=== PATIENT | female | born 1990 | race Caucasian/White ===

== ENCOUNTER → 2017-01-04 | Outpatient (REF) | payer OTHER, MEDICAID ==
[~2017-01-04] MED LIST: AMBI10TA OR; EFFE75CA75 OR; PAXI40TA OR; TRAZ50TA OR
== END ==
LOC: M LAB REF 09:48
PROVIDERS: ATTEND Physician Assistant
DX: L03.90 Cellulitis, unspecified (principal)

== ENCOUNTER → 2017-04-03 | Outpatient (CLI) | payer OTHER ==
[2017-04-03 14:26] LABS: BASO # 0.1 K/mm3 (0.0-0.2); BASO % 0.7 % (0.0-1.0); EOS # 0.8 K/mm3 (0.0-0.50); EOS % 7.1 % (0.0-3.0); LARGE UNSTAINED CELL # 0.3 K/mm3 (0.0-0.4); LARGE UNSTAINED CELL % 2.4 % (0.0-4.0); LYMPH # 2.3 K/mm3 (1.5-6.5); LYMPH % 19.4 % (24.0-44.0); MEAN CORPUSCULAR HEMOGLOBIN 26.5 pg (27.0-33.0); MEAN CORPUSCULAR HGB CONC 32.6 g/dl (32.0-36.5); MEAN CORPUSCULAR VOLUME 81.2 fl (80.0-96.0); MONO # 0.6 K/mm3 (0.0-0.8); MONO % 5.4 % (0.0-5.0); NEUTROPHILS # 7.5 K/mm3 (1.8-7.7); PLATELET COUNT, AUTOMATED 314 k/mm3 (150-450); RED CELL DISTRIBUTION WIDTH 14.8 % (11.5-14.5); WHITE BLOOD COUNT 11.6 K/mm3 (4.0-10.0)
[2017-04-04 10:07] LABS: HBsAg Prenatal NEGATIVE (NEGATIVE)
== END ==
LOC: M SMT 09:58
PROVIDERS: ATTEND Obstetrics & Gynecology
DX: Z34.81 Encounter for supervision of other normal pregnancy, first trimester (principal)

== ENCOUNTER → 2017-04-16 | Outpatient (CLI) | payer OTHER ==
[2017-04-16 18:38] LABS: ALBUMIN 3.6 GM/DL (3.2-5.2); ALBUMIN/GLOBULIN RATIO 1.03 (1.00-1.93); ALKALINE PHOSPHATASE 70 U/L (45-117); ALT/SGPT 54 U/L (12-78); ANION GAP 5 MEQ/L (8-16); AST/SGOT 23 U/L (15-37); BILIRUBIN,TOTAL 0.3 MG/DL (0.2-1.0); BLOOD UREA NITROGEN 7 MG/DL (7-18); CALCIUM LEVEL 8.8 MG/DL (8.5-10.1); CARBON DIOXIDE LEVEL 27 MEQ/L (21-32); CHLORIDE LEVEL 102 MEQ/L (98-107); CREATININE FOR GFR 0.57 MG/DL (0.55-1.02); GLOMERULAR FILTRATION RATE > 60.0 (>60); GLUCOSE, FASTING 78 MG/DL (70-105); POTASSIUM SERUM 4.7 MEQ/L (3.5-5.1); SODIUM LEVEL 134 MEQ/L (136-145); TOTAL PROTEIN 7.1 GM/DL (6.4-8.2); URIC ACID 2.9 MG/DL (2.6-6.0)
== END ==
LOC: M LAB 17:12
PROVIDERS: ATTEND Obstetrics & Gynecology
DX: M32.9 Systemic lupus erythematosus, unspecified (principal)

== ENCOUNTER → 2017-04-29 | Outpatient (CLI) | payer OTHER | LOC: M SMT 09:39 | PROVIDERS: ATTEND Advanced Practice Midwife | DX: R53.83 Other fatigue (principal) ==

== ENCOUNTER 2017-06-20 16:37 | Emergency (ER) | payer OTHER ==
[~2017-06-20] VITALS: Ht 170.2 cm; Wt 82.2 kg
[2017-06-20] MEDS ORDERED: ZYRT10CA PO (16:49)
[2017-06-20] MEDS ORDERED: PROZ10CA7 PO (16:49)
[2017-06-20] MEDS ORDERED: OMEP20CA3 PO (16:49)
[2017-06-20] MEDS ORDERED: METOCLOPRAMIDE INJ 10MG/2ML VIAL (J2765) IV ONE (18:45)
[2017-06-20] MEDS ORDERED: NS 1,000 ML IV ONE (18:45)
[2017-06-20 20:07] VITALS: BP 142/80
== END 2017-06-20 20:22 | disposition home or self-care (01) ==
LOC: M ED 16:37
DX: O21.0 Mild hyperemesis gravidarum (principal); O26.892 Other specified pregnancy related conditions, second trimester; R51 Headache; O99.342 Other mental disorders complicating pregnancy, second trimester; F32.9 Major depressive disorder, single episode, unspecified; Z3A.17 17 weeks gestation of pregnancy; Z79.899 Other long term (current) drug therapy
CPT/HCPCS: 96374; 99283; J2765

== ENCOUNTER 2017-06-23 22:01 | Emergency (ER) | payer OTHER ==
[~2017-06-23] VITALS: Ht 170.2 cm; Wt 82.2 kg
[~2017-06-23 22:01] MED LIST changes: +OMEP20CA3 PO; +PROZ10CA7 PO; +ZYRT10CA PO
[2017-06-23 23:52] LABS: BASO # 0.1 K/mm3 (0.0-0.2); BASO % 0.5 % (0.0-1.0); EOS # 0.7 K/mm3 (0.0-0.50); EOS % 4.5 % (0.0-3.0); LARGE UNSTAINED CELL # 0.3 K/mm3 (0.0-0.4); LARGE UNSTAINED CELL % 1.6 % (0.0-4.0); LYMPH # 3.3 K/mm3 (1.5-6.5); LYMPH % 19.5 % (24.0-44.0); MEAN CORPUSCULAR HEMOGLOBIN 26.9 pg (27.0-33.0); MEAN CORPUSCULAR VOLUME 79.1 fl (80.0-96.0); MONO # 0.7 K/mm3 (0.0-0.8); MONO % 4.6 % (0.0-5.0); NEUTROPHILS % 69.2 % (36.0-66.0); PLATELET COUNT, AUTOMATED 253 k/mm3 (150-450); RED CELL DISTRIBUTION WIDTH 15.1 % (11.5-14.5); WHITE BLOOD COUNT 15.9 K/mm3 (4.0-10.0)
--- NOTE | 2017-06-24 01:30 | REPUSA ---
CLINICAL HISTORY: Pelvic pain. TECHNIQUE: Realtime sonographic images were obtained in multiple projections via TA approach. The exa mination was performed by the pharmacy intake technician and still images were submitted for interpretation. COMMENTS: Single, live intrauterine gestation. Breech presentation. motion was identified. heart rate 149 beats per minute. Anterior placenta. No evidence of placental abruption. Placenta changes grade 0. Unremarkable amniotic fluid. The cervix measures 4.3 cm in length. The lateral ventricle measures 7.8 mm. Unremarkable maternal adnexa. Estimated gestation age 18 weeks and 2 days. Estimated delivery date of 11/23/2017. Nuchal CORD was not seen. The visualized anatomy is unremarkable. IMPRESSION: Single, live intrauterine gestation. Thank you for your kind referral of this patient.
[2017-06-24 01:44] VITALS: BP 134/86
== END 2017-06-24 01:45 | disposition home or self-care (01) ==
LOC: M ED 22:01
DX: Z32.01 Encounter for pregnancy test, result positive (principal); Z3A.18 18 weeks gestation of pregnancy; Z79.899 Other long term (current) drug therapy

== ENCOUNTER → 2017-08-20 | Outpatient (CLI) | payer OTHER ==
[2017-08-20 19:58] LABS: MEAN CORPUSCULAR HEMOGLOBIN 25.8 pg (27.0-33.0); MEAN CORPUSCULAR VOLUME 80.6 fl (80.0-96.0); RED CELL DISTRIBUTION WIDTH 15.2 % (11.5-14.5); WHITE BLOOD COUNT 16.7 10^3/uL (4.0-10.0)
== END ==
LOC: M SMT 13:04
PROVIDERS: ATTEND Obstetrics & Gynecology
DX: Z34.82 Encounter for supervision of other normal pregnancy, second trimester (principal)

== ENCOUNTER → 2017-10-06 | Outpatient (CLI) | payer OTHER ==
--- NOTE | 2017-10-07 07:41 | REP ---
LIMITED OBSTETRICAL ULTRASOUND: CLINICAL: Growth evaluation. COMPARISON: 07/08/2017. Ultrasound examination demonstrates single live advanced gestation in cephalic presentation. motion was identified by technologist. Placenta is noted posteriorly and grade 1 without evidence for placenta previa. Amniotic fluid volume is within normal limits. No evidence for nuchal cord. Gestational age by LMP 32 weeks 4 days with estimated date of delivery 11/27/2017. Gestational age by current measurements 33 weeks 5 days with estimated date of delivery 11/21/2017. FHR 144 beats per minute. BPD 8.6 cm 34 weeks 6 days HC 30.4 cm 33 weeks 6 days AC 30.5 cm 34 weeks 3 days FL 6.4 cm 32 weeks 6 days HC/AC ratio 1.00. Estimated weight 2330 grams (73rd percentile) based on age by LMP. YONNY equals 14.4 cm (8.4 - 24.4). Umbilical cord S/d ratio equals 3.01 (2.20 - 3.20). IMPRESSION: Single live intrauterine in cephalic presentation demonstrating appropriate interval growth. No gross abnormalities are identified. Signed by Paul Roldan MD 10/10/2017 06:55 A
== END ==
LOC: M SMT 08:07
PROVIDERS: ATTEND Obstetrics & Gynecology
DX: O99.89 Other specified diseases and conditions complicating pregnancy, childbirth and the puerperium (principal); Z3A.32 32 weeks gestation of pregnancy

== ENCOUNTER → 2017-10-29 | Outpatient (CLI) | payer OTHER | LOC: M SMT 09:55 | DX: O99.89 Other specified diseases and conditions complicating pregnancy, childbirth and the puerperium (principal); Z3A.35 35 weeks gestation of pregnancy | CPT/HCPCS: 76816 ==

== ENCOUNTER → 2017-10-30 | Outpatient (REF) | payer OTHER | LOC: M LAB REF 11:15 | DX: Z36.85 Encounter for antenatal screening for Streptococcus B (principal); Z3A.00 Weeks of gestation of pregnancy not specified | CPT/HCPCS: 87081 ==

== ENCOUNTER → 2017-11-04 | Outpatient (CLI) | payer OTHER ==
[2017-11-04 18:14] LABS: HEMATOCRIT 35.1 % (36.0-47.0); HEMOGLOBIN 10.9 g/dl (12.0-16.0); MEAN CORPUSCULAR HGB CONC 31.1 g/dl (32.0-36.5); MEAN CORPUSCULAR VOLUME 77.1 fl (80.0-96.0); PLATELET COUNT, AUTOMATED 251 10^3/uL (150-450); RED BLOOD COUNT 4.55 10^6/uL (4.00-5.40); WHITE BLOOD COUNT 17.3 10^3/uL (4.0-10.0)
[2017-11-04 18:27] LABS: ALT/SGPT 17 U/L (12-78); AST/SGOT 18 U/L (7-37); BILIRUBIN,TOTAL 0.3 MG/DL (0.2-1.0); CREATININE FOR GFR 0.51 MG/DL (0.55-1.02); GLOMERULAR FILTRATION RATE > 60.0 (>60); LDH LACTATE DEHYDROGENASE 168 U/L (84-246); URIC ACID 3.6 MG/DL (2.6-6.0)
[2017-11-04 18:29] LABS: TOTAL PROTEIN,RANDOM URINE 35.7 MG/DL (0.0-12.0)
== END ==
LOC: M SMT 13:04
DX: O16.3 Unspecified maternal hypertension, third trimester (principal)
CPT/HCPCS: 84460

== ENCOUNTER 2018-01-05 22:07 | Observation (INO) | payer OTHER ==
[2018-01-05] MEDS: KETOROLAC 30 MG/ML VIAL (J1885) IV (22:58)
[2018-01-05] MEDS: ONDANSETRON 4MG/2ML VIAL (J2405) IV (22:58)
[2018-01-05] MEDS: NS 1,000 ML IV (22:58)
[2018-01-05 23:04] LABS: BASO # 0.2 10^3/uL (0.0-0.2); BASO % 0.7 % (0.0-1.0); EOS # 1.2 10^3/uL (0.0-0.50); EOS % 5.2 % (0.0-3.0); HEMATOCRIT 49.1 % (36.0-47.0); HEMOGLOBIN 15.4 g/dl (12.0-16.0); IMMATURE GRANULOCYTE % 0.5 % (0-3.0); LYMPH # 3.8 10^3/uL (1.5-6.5); MEAN CORPUSCULAR HEMOGLOBIN 24.5 pg (27.0-33.0); MEAN CORPUSCULAR HGB CONC 31.4 g/dl (32.0-36.5); MEAN CORPUSCULAR VOLUME 78.1 fl (80.0-96.0); MONO # 1.4 10^3/uL (0.0-0.8); NEUTROPHILS # 16.8 10^3/uL (1.8-7.7); NEUTROPHILS % 71.6 % (36.0-66.0); PLATELET COUNT, AUTOMATED 386 10^3/uL (150-450); RED BLOOD COUNT 6.29 10^6/uL (4.00-5.40); RED CELL DISTRIBUTION WIDTH 16.8 % (11.5-14.5); WHITE BLOOD COUNT 23.5 10^3/uL (4.0-10.0)
[2018-01-05 23:26] LABS: CONTROL LINE HCG INT CTR LINE PRESENT; HCG, SERUM QUALITATIVE NEGATIVE (NEGATIVE)
[2018-01-05 23:32] LABS: ALBUMIN 3.7 GM/DL (3.2-5.2); ALBUMIN/GLOBULIN RATIO 0.97 (1.00-1.93); ALKALINE PHOSPHATASE 189 U/L (45-117); ALT/SGPT 115 U/L (12-78); AMYLASE 1234 U/L (25-115); ANION GAP 7 MEQ/L (8-16); AST/SGOT 78 U/L (7-37); BILIRUBIN,DIRECT < 0.1 MG/DL (0.0-0.2); BILIRUBIN,TOTAL 0.2 MG/DL (0.2-1.0); BLOOD UREA NITROGEN 14 MG/DL (7-18); CALCIUM LEVEL 8.8 MG/DL (8.5-10.1); CARBON DIOXIDE LEVEL 28 MEQ/L (21-32); CHLORIDE LEVEL 105 MEQ/L (98-107); CREATININE FOR GFR 0.85 MG/DL (0.55-1.30); GLOMERULAR FILTRATION RATE > 60.0 (>60); GLUCOSE, FASTING 99 MG/DL (70-100); LIPASE 24537 U/L (73-393); POTASSIUM SERUM 4.1 MEQ/L (3.5-5.1); SODIUM LEVEL 140 MEQ/L (136-145); TOTAL PROTEIN 7.5 GM/DL (6.4-8.2)
[2018-01-05] MEDS ORDERED: ISOVUE-370 76% 100ML VIAL (Q9967) As Ordered (23:52)
[2018-01-06 00:05] LABS: CHOLESTEROL LEVEL 217 MG/DL (<200); CHOLESTEROL RISK RATIO 3.616 (<5); HDL CHOLESTEROL 60 MG/DL (>40); LDL CHOLESTEROL 141.2 MG/DL (<100); NON-HDL-C 157 MG/DL; TRIGLYCERIDES LEVEL 79 MG/DL (<150)
[2018-01-06] MEDS ORDERED: ONDANSETRON 4MG/2ML VIAL (J2405) IV (01:30)
[2018-01-06] MEDS ORDERED: ACETAMINOPHEN TAB 650MG DOSE (2X325MG) PO (01:45)
[2018-01-06] MEDS ORDERED: MORPHINE 4 MG/ML 1ML VIAL (J2270) IV (01:45)
[2018-01-06] MEDS: NS 1,000 ML IV ×4 (03:01→23:18)
[2018-01-06] MEDS: FLUoxetine 20 MG CAP PO ×2 (04:18→21:21)
[2018-01-06 05:54] LABS: ANION GAP 5 MEQ/L (8-16); BLOOD UREA NITROGEN 13 MG/DL (7-18); CALCIUM LEVEL 7.9 MG/DL (8.5-10.1); CARBON DIOXIDE LEVEL 28 MEQ/L (21-32); CHLORIDE LEVEL 107 MEQ/L (98-107); GLOMERULAR FILTRATION RATE > 60.0 (>60); GLUCOSE, FASTING 97 MG/DL (70-100); POTASSIUM SERUM 4.1 MEQ/L (3.5-5.1); SODIUM LEVEL 140 MEQ/L (136-145)
[2018-01-06 05:55] LABS: ERYTHROCYTE SEDIMENTATION RATE 12 mm/hr (0-20)
[2018-01-06 05:56] LABS: ANION GAP 6 MEQ/L (8-16); BLOOD UREA NITROGEN 13 MG/DL (7-18); C REACTIVE PROTEIN QUANTITATIV 0.62 MG/DL (0.00-0.30); CALCIUM LEVEL 8.2 MG/DL (8.5-10.1); CARBON DIOXIDE LEVEL 28 MEQ/L (21-32); CHLORIDE LEVEL 107 MEQ/L (98-107); CREATININE FOR GFR 0.76 MG/DL (0.55-1.30); GLOMERULAR FILTRATION RATE > 60.0 (>60); GLUCOSE, FASTING 97 MG/DL (70-100); POTASSIUM SERUM 4.1 MEQ/L (3.5-5.1); SODIUM LEVEL 141 MEQ/L (136-145)
[2018-01-06 05:57] LABS: ETHYL ALCOHOL (ETHANOL) < 0.003 % (0.000-0.010)
[2018-01-06 06:57] LABS: BASO # 0.1 10^3/uL (0.0-0.2); BASO % 0.5 % (0.0-1.0); EOS # 0.8 10^3/uL (0.0-0.50); EOS % 4.4 % (0.0-3.0); HEMATOCRIT 39.5 % (36.0-47.0); IMMATURE GRANULOCYTE % 0.8 % (0-3.0); LYMPH # 2.9 10^3/uL (1.5-6.5); LYMPH % 15.5 % (24.0-44.0); MEAN CORPUSCULAR HEMOGLOBIN 25.1 pg (27.0-33.0); MEAN CORPUSCULAR HGB CONC 32.2 g/dl (32.0-36.5); MEAN CORPUSCULAR VOLUME 78.1 fl (80.0-96.0); MONO # 0.8 10^3/uL (0.0-0.8); MONO % 4.4 % (0.0-5.0); NEUTROPHILS % 74.4 % (36.0-66.0); PLATELET COUNT, AUTOMATED 317 10^3/uL (150-450); RED BLOOD COUNT 5.06 10^6/uL (4.00-5.40); RED CELL DISTRIBUTION WIDTH 16.1 % (11.5-14.5); WHITE BLOOD COUNT 18.8 10^3/uL (4.0-10.0)
[2018-01-06 07:02] LABS: AMYLASE 691 U/L (25-115); LIPASE 6521 U/L (73-393)
[2018-01-06 07:04] LABS: HEMOGLOBIN 12.7 g/dl (12.0-16.0)
[2018-01-06] MEDS: PANTOPRAZOLE 40MG INJ (PROTONIX) (C9113) IV (09:13)
[2018-01-06 11:23] LABS: KETONE, URINE AUTO RFX NEGATIVE (NEGATIVE); LEUKOCYTE ESTERASE UR AUTO RFX NEGATIVE (NEGATIVE); MUCUS, URINE RFX SMALL (NEGATIVE); NITRITE, URINE AUTO RFX NEGATIVE (NEGATIVE); RBC, URINE AUTO RFX 2 /HPF (0-3); SQUAM EPITHELIAL CELL UR AURFX 12 /HPF (0-6); WBC, URINE AUTO RFX 2 /HPF (0-3)
[2018-01-06 12:02] LABS: SPECIFIC GRAVITY UR AUTO RFX >1.060 (1.002-1.035)
[2018-01-06 14:24] LABS: ANION GAP 8 MEQ/L (8-16); BLOOD UREA NITROGEN 14 MG/DL (7-18); CALCIUM LEVEL 7.9 MG/DL (8.5-10.1); CARBON DIOXIDE LEVEL 24 MEQ/L (21-32); CHLORIDE LEVEL 111 MEQ/L (98-107); CREATININE FOR GFR 0.68 MG/DL (0.55-1.30); GLOMERULAR FILTRATION RATE > 60.0 (>60); GLUCOSE, FASTING 80 MG/DL (70-100); POTASSIUM SERUM 3.9 MEQ/L (3.5-5.1); SODIUM LEVEL 143 MEQ/L (136-145)
[2018-01-06] MEDS: ENOXAPARIN 40 MG/0.4 ML SYRINGE (J1650) SC (17:26)
[2018-01-06 19:54] LABS: ANION GAP 6 MEQ/L (8-16); BLOOD UREA NITROGEN 12 MG/DL (7-18); CALCIUM LEVEL 7.8 MG/DL (8.5-10.1); CARBON DIOXIDE LEVEL 25 MEQ/L (21-32); CHLORIDE LEVEL 112 MEQ/L (98-107); CREATININE FOR GFR 0.71 MG/DL (0.55-1.30); GLOMERULAR FILTRATION RATE > 60.0 (>60); GLUCOSE, FASTING 101 MG/DL (70-100); POTASSIUM SERUM 3.6 MEQ/L (3.5-5.1); SODIUM LEVEL 143 MEQ/L (136-145)
[2018-01-07 02:25] LABS: ANION GAP 5 MEQ/L (8-16); BLOOD UREA NITROGEN 8 MG/DL (7-18); CALCIUM LEVEL 7.9 MG/DL (8.5-10.1); CARBON DIOXIDE LEVEL 27 MEQ/L (21-32); CHLORIDE LEVEL 111 MEQ/L (98-107); CREATININE FOR GFR 0.58 MG/DL (0.55-1.30); GLOMERULAR FILTRATION RATE > 60.0 (>60); GLUCOSE, FASTING 78 MG/DL (70-100); POTASSIUM SERUM 3.9 MEQ/L (3.5-5.1); SODIUM LEVEL 143 MEQ/L (136-145)
[2018-01-07 05:31] LABS: HEMATOCRIT 34.9 % (36.0-47.0); HEMOGLOBIN 10.8 g/dl (12.0-16.0); MEAN CORPUSCULAR HEMOGLOBIN 24.5 pg (27.0-33.0); MEAN CORPUSCULAR HGB CONC 30.9 g/dl (32.0-36.5); MEAN CORPUSCULAR VOLUME 79.3 fl (80.0-96.0); PLATELET COUNT, AUTOMATED 255 10^3/uL (150-450); RED CELL DISTRIBUTION WIDTH 15.9 % (11.5-14.5); WHITE BLOOD COUNT 11.7 10^3/uL (4.0-10.0)
[2018-01-07] MEDS: NS 1,000 ML IV ×2 (05:46→11:56)
[2018-01-07 05:54] LABS: LIPASE 145 U/L (73-393)
[2018-01-07 05:55] LABS: ANION GAP 5 MEQ/L (8-16); BLOOD UREA NITROGEN 8 MG/DL (7-18); CARBON DIOXIDE LEVEL 28 MEQ/L (21-32); CHLORIDE LEVEL 110 MEQ/L (98-107); GLOMERULAR FILTRATION RATE > 60.0 (>60); GLUCOSE, FASTING 75 MG/DL (70-100); POTASSIUM SERUM 4.2 MEQ/L (3.5-5.1); SODIUM LEVEL 143 MEQ/L (136-145)
[2018-01-07] MEDS: FERROUS SULFATE 325MG TAB PO ×3 (09:30→20:07)
[2018-01-07] MEDS: PANTOPRAZOLE 40MG INJ (PROTONIX) (C9113) IV (09:30)
[2018-01-07] MEDS: ENOXAPARIN 40 MG/0.4 ML SYRINGE (J1650) SC (09:31)
[2018-01-07 09:41] LABS: FERRITIN 21 NG/ML (8-252); IRON (FE) 78 UG/DL (50-170); PERCENT SATURATION 26.7 % (13.2-45.0); TOTAL IRON BINDING CAPACITY 292 UG/DL (250-450)
[2018-01-07 12:35] LABS: VITAMIN B12 LEVEL 902 PG/ML (247-911)
[2018-01-07 14:40] LABS: ANION GAP 7 MEQ/L (8-16); BLOOD UREA NITROGEN 5 MG/DL (7-18); CALCIUM LEVEL 7.9 MG/DL (8.5-10.1); CARBON DIOXIDE LEVEL 24 MEQ/L (21-32); CHLORIDE LEVEL 112 MEQ/L (98-107); CREATININE FOR GFR 0.56 MG/DL (0.55-1.30); GLOMERULAR FILTRATION RATE > 60.0 (>60); GLUCOSE, FASTING 98 MG/DL (70-100); POTASSIUM SERUM 3.7 MEQ/L (3.5-5.1); SODIUM LEVEL 143 MEQ/L (136-145)
[2018-01-07] MEDS ORDERED: SLF 3 ML SYR IV (15:45)
[2018-01-07 19:54] LABS: ANION GAP 6 MEQ/L (8-16); BLOOD UREA NITROGEN 4 MG/DL (7-18); CALCIUM LEVEL 8.1 MG/DL (8.5-10.1); CARBON DIOXIDE LEVEL 26 MEQ/L (21-32); CHLORIDE LEVEL 111 MEQ/L (98-107); CREATININE FOR GFR 0.62 MG/DL (0.55-1.30); GLOMERULAR FILTRATION RATE > 60.0 (>60); GLUCOSE, FASTING 100 MG/DL (70-100); POTASSIUM SERUM 3.6 MEQ/L (3.5-5.1); SODIUM LEVEL 143 MEQ/L (136-145)
[2018-01-07] MEDS: FLUoxetine 20 MG CAP PO (20:07)
[2018-01-07] MEDS: SLF 3 ML SYR IV (20:07)
[2018-01-08 05:03] LABS: HEMATOCRIT 38.3 % (36.0-47.0); MEAN CORPUSCULAR HEMOGLOBIN 24.7 pg (27.0-33.0); MEAN CORPUSCULAR HGB CONC 31.3 g/dl (32.0-36.5); PLATELET COUNT, AUTOMATED 310 10^3/uL (150-450); RED BLOOD COUNT 4.85 10^6/uL (4.00-5.40); RED CELL DISTRIBUTION WIDTH 15.8 % (11.5-14.5); WHITE BLOOD COUNT 13.6 10^3/uL (4.0-10.0)
[2018-01-08] MEDS: SLF 3 ML SYR IV (06:00)
[2018-01-08] MEDS: FERROUS SULFATE 325MG TAB PO (08:46)
[2018-01-08] MEDS: PANTOPRAZOLE 40MG INJ (PROTONIX) (C9113) IV (08:46)
[2018-01-08 10:13] LABS: ALBUMIN 3.3 GM/DL (3.2-5.2); ALBUMIN/GLOBULIN RATIO 0.97 (1.00-1.93); ALKALINE PHOSPHATASE 163 U/L (45-117); ALT/SGPT 84 U/L (12-78); ANION GAP 7 MEQ/L (8-16); AST/SGOT 55 U/L (7-37); BILIRUBIN,TOTAL 0.2 MG/DL (0.2-1.0); BLOOD UREA NITROGEN 6 MG/DL (7-18); CALCIUM LEVEL 8.2 MG/DL (8.5-10.1); CARBON DIOXIDE LEVEL 26 MEQ/L (21-32); CHLORIDE LEVEL 109 MEQ/L (98-107); CREATININE FOR GFR 0.62 MG/DL (0.55-1.30); GLOMERULAR FILTRATION RATE > 60.0 (>60); GLUCOSE, FASTING 84 MG/DL (70-100); POTASSIUM SERUM 3.8 MEQ/L (3.5-5.1); SODIUM LEVEL 142 MEQ/L (136-145); TOTAL PROTEIN 6.7 GM/DL (6.4-8.2)
[2018-01-09 11:27] LABS: HEPATITIS B SURFACE ANTIGEN NEGATIVE (NEGATIVE)
[2018-01-09 11:53] LABS: HEPATITIS B CORE ANTIBODY IGM NEGATIVE (NEGATIVE); HEPATITIS C VIRUS ABY INDEX 0.1 INDEX (<0.8)
[2018-01-09 11:55] LABS: HEPATITIS A ANTIBODY IGM NEGATIVE (NEGATIVE)
[2018-01-10 00:07] LABS: IgG SUBCLASS 4(ONLY) 38 mg/dL (2-96)
== END 2018-01-08 12:13 | disposition home or self-care (01) ==
LOC: M ED INP 22:08 → M PCU 01-06 11:12 → M ED 22:07
DX: K85.90 Acute pancreatitis without necrosis or infection, unspecified (principal); D72.829 Elevated white blood cell count, unspecified; R74.0 Nonspecific elevation of levels of transaminase and lactic acid dehydrogenase [LDH]; F41.9 Anxiety disorder, unspecified; F32.9 Major depressive disorder, single episode, unspecified; N83.201 Unspecified ovarian cyst, right side; K21.9 Gastro-esophageal reflux disease without esophagitis; D50.9 Iron deficiency anemia, unspecified; E78.5 Hyperlipidemia, unspecified; R11.2 Nausea with vomiting, unspecified; I10 Essential (primary) hypertension; G43.909 Migraine, unspecified, not intractable, without status migrainosus; Z79.899 Other long term (current) drug therapy
CPT/HCPCS: C9113

== ENCOUNTER → 2018-04-06 | Outpatient (REF) | payer OTHER | LOC: M LAB REF 04-07 09:27 | DX: Z12.4 Encounter for screening for malignant neoplasm of cervix (principal) ==

== ENCOUNTER → 2019-05-27 | Outpatient (CLI) | payer OTHER ==
[~2019-05-27] MED LIST changes: +FERR1TAB8 PO; +FERR324T2 PO; +FLUO40CA PO; +IBUPOTC PO; +MAPA500T2 PO; +MOME50SP2; +MOTR200T44 PO; -OMEP20CA3 PO; +OMEP20CA4 PO; +OMEP40CA2 PO; +PRENTAB9 PO
[2019-05-28 10:09] LABS: BASO # 0.1 10^3/uL (0.0-0.2); EOS # 1.1 10^3/uL (0.0-0.50); EOS % 8.4 % (0.0-3.0); HEMATOCRIT 47.7 % (36.0-47.0); HEMOGLOBIN 14.2 g/dl (12.0-15.5); LYMPH # 3.2 10^3/uL (1.5-6.5); LYMPH % 23.9 % (24.0-44.0); MEAN CORPUSCULAR HEMOGLOBIN 25.5 pg (27.0-33.0); MEAN CORPUSCULAR HGB CONC 29.8 g/dl (32.0-36.5); MEAN CORPUSCULAR VOLUME 85.6 fl (80.0-96.0); MONO % 7.5 % (0.0-5.0); NEUTROPHILS % 58.8 % (36.0-66.0); PLATELET COUNT, AUTOMATED 369 10^3/uL (150-450); RED BLOOD COUNT 5.57 10^6/uL (4.00-5.40); WHITE BLOOD COUNT 13.5 10^3/uL (4.0-10.0)
[2019-05-28 10:17] LABS: PERCENT SATURATION 20.9 % (13.2-45.0)
[2019-05-28 10:39] LABS: FOLATE 7.1 NG/ML
== END ==
LOC: M SMT 14:07
PROVIDERS: ATTEND Physician Assistant
DX: D64.9 Anemia, unspecified (principal)

== ENCOUNTER → 2019-06-03 | Outpatient (REF) | payer OTHER ==
[2019-06-03 12:28] LABS: BASO # 0.1 10^3/uL (0.0-0.2); BASO % 0.8 % (0.0-1.0); EOS # 0.8 10^3/uL (0.0-0.50); EOS % 6.4 % (0.0-3.0); HEMATOCRIT 41.8 % (36.0-47.0); HEMOGLOBIN 13.3 g/dl (12.0-15.5); LYMPH # 2.9 10^3/uL (1.5-6.5); LYMPH % 22.7 % (24.0-44.0); MEAN CORPUSCULAR HEMOGLOBIN 25.9 pg (27.0-33.0); MEAN CORPUSCULAR HGB CONC 31.8 g/dl (32.0-36.5); MEAN CORPUSCULAR VOLUME 81.5 fl (80.0-96.0); MONO # 0.9 10^3/uL (0.0-0.8); MONO % 7.3 % (0.0-5.0); NEUTROPHILS # 7.8 10^3/uL (1.8-7.7); NEUTROPHILS % 62.2 % (36.0-66.0); PLATELET COUNT, AUTOMATED 306 10^3/uL (150-450); RED BLOOD COUNT 5.13 10^6/uL (4.00-5.40); WHITE BLOOD COUNT 12.5 10^3/uL (4.0-10.0)
== END ==
LOC: M LABDRAW1 10:14
PROVIDERS: ATTEND Physician Assistant
DX: D64.9 Anemia, unspecified (principal)

== ENCOUNTER → 2019-07-27 | Outpatient (REF) | payer OTHER ==
[2019-07-29 14:11] LABS: HPV HYBRID CAPTURE II Negative (Negative)
== END ==
LOC: M LAB REF 20:40
PROVIDERS: ATTEND Obstetrics & Gynecology
DX: Z12.4 Encounter for screening for malignant neoplasm of cervix (principal)

== ENCOUNTER → 2019-11-15 | Outpatient (CLI) | payer OTHER ==
[~2019-11-15] MED LIST changes: +OMEP1CAP73 PO; -OMEP20CA4 PO; -OMEP40CA2 PO; +OMEP40CA97 PO
[2019-11-15 13:16] LABS: BASO # 0.1 10^3/uL (0.0-0.2); BASO % 0.5 % (0.0-1.0); EOS # 0.5 10^3/uL (0.0-0.5); EOS % 3.6 % (0.0-3.0); HEMATOCRIT 41.1 % (36.0-47.0); HEMOGLOBIN 12.7 g/dl (12.0-15.5); LYMPH # 2.1 10^3/uL (1.5-5.0); LYMPH % 16.4 % (24.0-44.0); MEAN CORPUSCULAR HEMOGLOBIN 25.9 pg (27.0-33.0); MEAN CORPUSCULAR HGB CONC 30.9 g/dl (32.0-36.5); MEAN CORPUSCULAR VOLUME 83.9 fl (80.0-96.0); MONO # 0.8 10^3/uL (0.0-0.8); MONO % 6.3 % (0.0-5.0); NEUTROPHILS # 9.2 10^3/uL (1.5-8.5); NEUTROPHILS % 72.7 % (36.0-66.0); PLATELET COUNT, AUTOMATED 262 10^3/uL (150-450); WHITE BLOOD COUNT 12.6 10^3/uL (4.0-10.0)
[2019-11-15 13:33] LABS: TOTAL PROTEIN,RANDOM URINE 27.9 MG/DL (0.0-12.0)
[2019-11-15 13:38] LABS: ALT/SGPT 17 U/L (12-78); BILIRUBIN,TOTAL 0.3 MG/DL (0.2-1.0); CREATININE FOR GFR 0.56 MG/DL (0.55-1.30); GLOMERULAR FILTRATION RATE > 60.0 (>60); LDH LACTATE DEHYDROGENASE 139 U/L (84-246); URIC ACID 3.1 MG/DL (2.6-6.0)
[2019-11-15 13:53] LABS: RUBELLA IgG QUALITATIVE IMMUNE (IMMUNE)
[2019-11-15 13:54] LABS: HEPATITIS B SURFACE ANTIGEN NEGATIVE (NEGATIVE)
[2019-11-15 14:22] LABS: HEPATITIS C VIRUS ABY INDEX 0.1 INDEX (<0.8)
[2019-11-15 14:29] LABS: HIV 1&2 SCREEN CENTAUR NEGATIVE (NEGATIVE)
[2019-11-15 15:13] LABS: CHLAMYDIA DNA AMPLIFICATION NEGATIVE (NEGATIVE); GC DNA AMPLIFICATION NEGATIVE (NEGATIVE)
== END ==
LOC: M WUC 09:56
PROVIDERS: ATTEND Obstetrics & Gynecology
DX: O09.291 Supervision of pregnancy with other poor reproductive or obstetric history, first trimester (principal); Z3A.00 Weeks of gestation of pregnancy not specified

== ENCOUNTER → 2020-01-11 | Outpatient (CLI) | payer OTHER ==
--- NOTE | 2020-01-12 06:48 | REP ---
Clinical: Anatomical evaluation. Comparison: None . Findings: Examination demonstrates a single live intrauterine in variable presentation. motion is identified by technologist. Placenta is noted anterior/left lateral and grade zero with evidence for complete previa. Amniotic fluid volume is normal. Cervix measures 3.9 cm in length and appears closed. No evidence for nuchal cord. Gestational age by current measurements 19 weeks 3 days with LUCIA 06/03/2020 . FHR equals 153 beats per minute. BPD 4.7 cm 20 weeks 0 days HC 16.6 cm 19 weeks 2 days AC 14.9 cm 20 weeks 1 day FL 3.0 cm 19 weeks 2 days HL 3.0 cm 19 weeks 6 days HC/AC ratio 1.11 Estimated weight 311 grams ( 57 percentile). Anatomical assessment demonstrates normal structures including cranium, choroid plexus, cavum, cerebellum/posterior fossa, lungs, four-chamber heart/ventricular outflow tracts, diaphragm, stomach, cord insertion/three-vessel cord, kidneys/bladder, and extremities. Impression: 1. Single live intrauterine in variable presentation. 2. Complete placenta previa noted. 3. Limited evaluation of the facial features and spine.
== END ==
LOC: M WHC 10:14
PROVIDERS: ATTEND Obstetrics & Gynecology
DX: O09.299 Supervision of pregnancy with other poor reproductive or obstetric history, unspecified trimester (principal)

== ENCOUNTER → 2020-02-02 | Outpatient (CLI) | payer OTHER ==
--- NOTE | 2020-02-02 10:35 | REP ---
OB ULTRASOUND: Real-time sonographic evaluation of the gravid uterus is performed utilizing transabdominal and endovaginal technique. There is a single living intrauterine gestation. Estimated gestational age is 22 weeks 4 days, EDC 06/03/2020. Today's measurements indicate appropriate growth. BPD 57 mm = 23 weeks 3 days, 71st percentile HC 211 mm = 23 weeks 1 day, 67th percentile AC 173 mm = 22 weeks 2 days, 42nd percentile Femur length 40 mm = 22 weeks 5 days, 54th percentile HC/AC ratio 1.22 within normal range of 1.04-1.23. Estimated weight 516 grams, 44th percentile. Cervix is closed measuring 4.4 cm in length. heart rate 165 beats per minute. Visualized anatomy today includes the spine, kidneys, and upper lip which are grossly unremarkable. position is breech. Placenta is anterior. The placenta is grade 1 with no abruption. On transvaginal imaging the placenta is low lying and the tip is 5 mm from the internal cervical os. Amniotic fluid within normal limits.
== END ==
LOC: M WHC 08:46
PROVIDERS: ATTEND Obstetrics & Gynecology
DX: Z34.82 Encounter for supervision of other normal pregnancy, second trimester (principal)

== ENCOUNTER → 2020-02-07 | Outpatient (REF) | payer OTHER | LOC: M PLALAB 14:17 | PROVIDERS: ATTEND Obstetrics & Gynecology | DX: O44.02 Complete placenta previa NOS or without hemorrhage, second trimester (principal) ==

== ENCOUNTER → 2020-03-15 | Outpatient (REF) | payer OTHER ==
[2020-03-15 10:15] LABS: HEMATOCRIT 38.3 % (36.0-47.0); HEMOGLOBIN 12.3 g/dl (12.0-15.5); MEAN CORPUSCULAR HEMOGLOBIN 26.5 pg (27.0-33.0); MEAN CORPUSCULAR HGB CONC 32.1 g/dl (32.0-36.5); MEAN CORPUSCULAR VOLUME 82.4 fl (80.0-96.0); PLATELET COUNT, AUTOMATED 231 10^3/uL (150-450); RED BLOOD COUNT 4.65 10^6/uL (4.00-5.40); WHITE BLOOD COUNT 17.5 10^3/uL (4.0-10.0)
== END ==
LOC: M PLALAB 08:06
PROVIDERS: ATTEND Obstetrics & Gynecology
DX: O44.02 Complete placenta previa NOS or without hemorrhage, second trimester (principal)

== ENCOUNTER → 2020-04-04 | Outpatient (CLI) | payer OTHER ==
--- NOTE | 2020-04-04 18:41 | REP ---
Clinical: History of placenta previa Comparison: 02/02/2020 . Findings: Examination demonstrates a single live intrauterine in cephalic presentation. motion is identified by technologist. Placenta is noted anterior and grade I without evidence for placenta previa or abruption. Amniotic fluid volume is normal. Cervix measures 4.0 cm in length and appears closed. No evidence for nuchal cord. Gestational age by LMP 31 weeks 3 days with LUCIA 06/03/2020 . Gestational age by current measurements 31 weeks 3 days with LUCIA 06/03/2020 . FHR equals 139 beats per minute. Estimated weight 1820 grams ( 47 percentile). Amniotic fluid index: 13.7 cm Impression: 1. Single live intrauterine in cephalic presentation demonstrating appropriate interval growth. 2. Normal anterior grade 1 placenta without evidence for placenta previa.
== END ==
LOC: M WHC 07:23
PROVIDERS: ATTEND Nurse Practitioner Women's Health
DX: Z36.2 Encounter for other antenatal screening follow-up (principal); Z3A.31 31 weeks gestation of pregnancy

== ENCOUNTER → 2020-05-11 | Outpatient (REF) | payer OTHER ==
[~2020-05-11] MED LIST changes: +ACET-683 PO; +HYDR-3363 PO; +IBUP80TA PO; +LABE20TAB PO; +LEVOTAB10 PO; +MOME50SP; +OMEP10CASR PO; +ZOLO100T PO
== END ==
LOC: M PLALAB 15:09
PROVIDERS: ATTEND Advanced Practice Midwife
DX: Z34.83 Encounter for supervision of other normal pregnancy, third trimester (principal)

== ENCOUNTER 2020-05-14 10:34 | Outpatient (CLI) | payer OTHER ==
[~2020-05-14] VITALS: Ht 170.2 cm; Wt 95.0 kg
[~2020-05-14 10:34] MED LIST changes: -ACET-683 PO; -HYDR-3363 PO; -IBUP80TA PO; -LABE20TAB PO; -LEVOTAB10 PO; -MOME50SP; -OMEP10CASR PO; -ZOLO100T PO
[2020-05-14] MEDS ORDERED: PRENTAB9 PO (11:02)
[2020-07-21] MEDS ORDERED: MOME50SP (07:53)
[2020-07-21] MEDS ORDERED: HYDR-3363 PO (07:53)
[2020-07-21] MEDS ORDERED: LEVOTAB10 PO (07:53)
== END 2020-05-14 12:01 | disposition home or self-care (01) ==
LOC: M LDO 10:34
PROVIDERS: ATTEND Obstetrics & Gynecology
DX: O44.03 Complete placenta previa NOS or without hemorrhage, third trimester (principal); Z3A.33 33 weeks gestation of pregnancy

== ENCOUNTER 2020-05-20 07:51 | Inpatient (IN) | payer OTHER ==
[2020-05-20] VITALS (42 sets, daily range): BP systolic 117–155; BP diastolic 57–108
[~2020-05-20] VITALS: Ht 170.2 cm; Wt 95.9 kg
[2020-05-20] MEDS ORDERED: ZOLO100T PO (08:09)
[2020-05-20] MEDS ORDERED: LACTATED RINGER'S 1000 ML IV STA (09:08)
[2020-05-20] MEDS ORDERED: OXYTOCIN DRIP 30 UNITS in IV 1 EA IV SCH ×2 (09:30→19:32)
[2020-05-20 09:38] LABS: HEMATOCRIT 36.8 % (36.0-47.0); MEAN CORPUSCULAR HEMOGLOBIN 26.5 pg (27.0-33.0); MEAN CORPUSCULAR HGB CONC 32.6 g/dl (32.0-36.5); MEAN CORPUSCULAR VOLUME 81.4 fl (80.0-96.0); PLATELET COUNT, AUTOMATED 229 10^3/uL (150-450); RED BLOOD COUNT 4.52 10^6/uL (4.00-5.40)
[2020-05-20] MEDS: LR 1,000 ML IV SCH ×2 (09:42→12:52)
[2020-05-20] MEDS ORDERED: FENTANYL 2MCG/ML ROPIVACAINE 0.2% IN 0.9% NACL 100ML IVBAG As Ordered ONE (14:02)
[2020-05-20] MEDS ORDERED: REFRIGERATOR IV KEYS XX PRN (16:00)
[2020-05-20] MEDS ORDERED: ePHEDrine SULFATE 25 MG/5 ML(5MG/ML) SYRINGE IV PRN (16:00)
[2020-05-20] MEDS ORDERED: diphenhydrAMINE 50MG/ML VIAL (J1200) IV PRN (16:00)
[2020-05-20] MEDS ORDERED: EPIDURAL/PCA KEYS XX PRN (16:00)
[2020-05-20] MEDS ORDERED: LACTATED RINGER'S 1000 ML IV PRN (16:00)
[2020-05-20] MEDS ORDERED: NALOXONE INJ 0.4MG/1ML VIAL (J2310 PER 1MG) IV PRN (16:00)
[2020-05-20] MEDS ORDERED: EPIDURAL COMMENT XX SCH (16:00)
[2020-05-20] MEDS ORDERED: FENTANYL/ROPIVACAINE/NACL BAG 100 ML EPIDURAL SCH (16:00)
[2020-05-20] MEDS ORDERED: ONDANSETRON 4MG/2ML VIAL IV PRN ×2 (16:00→19:45)
[2020-05-20] MEDS ORDERED: LR 1,000 ML IV SCH (19:32)
[2020-05-20] MEDS ORDERED: OXYTOCIN 30 UNITS IN 0.9% NaCl 500ML IV BAG (J2590) As Ordered ONE (19:37)
[2020-05-20] MEDS ORDERED: ACETAMINOPHEN TAB 650MG DOSE (2X325MG) PO PRN (19:45)
[2020-05-20] MEDS ORDERED: DIBUCAINE 1% OINTMENT 30GM TOP PRN (19:45)
[2020-05-20] MEDS ORDERED: DOCUSATE SODIUM 100 MG CAP PO PRN (19:45)
[2020-05-20] MEDS ORDERED: PROMETHAZINE 25 MG TAB PO PRN (19:45)
[2020-05-20] MEDS ORDERED: ACETAMINOPHEN 500 MG TAB PO PRN (19:45)
[2020-05-20] MEDS ORDERED: IBUPROFEN 600MG TAB PO PRN (19:45)
[2020-05-20] MEDS ORDERED: RHOGAM 300 MCG (1500 IU) INJ (J2790) IM SCH (19:45)
[2020-05-20] MEDS ORDERED: MEASLES,MUMPS,RUBELLA VACCINE INJ (MMR-II) (90707) SC SCH (19:45)
[2020-05-20] MEDS: ceFAZolin SOD 2 GM in IV 1 EA IV SCH (19:50)
[2020-05-21] MEDS: IBUPROFEN 800 MG TAB PO PRN ×2 (00:17→20:43)
[2020-05-21] MEDS: SERTRALINE 100 MG TAB PO SCH ×2 (00:17→20:44)
[2020-05-21] MEDS: ceFAZolin SOD 2 GM in IV 1 EA IV SCH ×3 (04:20→20:44)
[2020-05-21 05:38] VITALS: BP 122/72
[2020-05-21] MEDS: OMEPRAZOLE 20 MG CAP PO SCH (09:00)
[2020-05-21] MEDS: PRENATAL VITAMINS CHEWABLE TABLET PO SCH (09:00)
[2020-05-21 11:34] LABS: HEMOGLOBIN 12.1 g/dl (12.0-15.5); MEAN CORPUSCULAR HEMOGLOBIN 26.9 pg (27.0-33.0); MEAN CORPUSCULAR HGB CONC 31.8 g/dl (32.0-36.5); MEAN CORPUSCULAR VOLUME 84.6 fl (80.0-96.0); PLATELET COUNT, AUTOMATED 212 10^3/uL (150-450); RED BLOOD COUNT 4.49 10^6/uL (4.00-5.40); WHITE BLOOD COUNT 16.9 10^3/uL (4.0-10.0)
[2020-05-21 12:03] LABS: ALBUMIN 2.2 GM/DL (3.2-5.2); ALT/SGPT 14 U/L (12-78); BILIRUBIN,TOTAL 0.2 MG/DL (0.2-1.0); BLOOD UREA NITROGEN 6 MG/DL (7-18); CALCIUM LEVEL 8.7 MG/DL (8.5-10.1); CARBON DIOXIDE LEVEL 28 MEQ/L (21-32); CHLORIDE LEVEL 107 MEQ/L (98-107); CREATININE FOR GFR 0.73 MG/DL (0.55-1.30); GLOMERULAR FILTRATION RATE > 60.0 (>60); GLUCOSE, FASTING 67 MG/DL (70-100); LDH LACTATE DEHYDROGENASE 223 U/L (84-246); POTASSIUM SERUM 4.2 MEQ/L (3.5-5.1); SODIUM LEVEL 140 MEQ/L (136-145); URIC ACID 4.2 MG/DL (2.6-6.0)
[2020-05-21 15:39] LABS: CREATININE,RANDOM URINE 78.1 MG/DL; TOTAL PROTEIN,RANDOM URINE 179.6 MG/DL (0.0-12.0)
[2020-05-21 17:00] VITALS: BP 145/79
[2020-05-21 18:00] VITALS: BP 144/90
[2020-05-22 06:00] VITALS: BP 123/79
[2020-05-22] MEDS ORDERED: medroxyPROGESTERone ACET IM SUSP 150 MG/ML VIAL (J1050) IM ONE (06:00)
[2020-05-22 08:40] VITALS: BP 140/93
[2020-05-22] MEDS: PRENATAL VITAMINS CHEWABLE TABLET PO SCH (08:40)
[2020-05-22] MEDS: OMEPRAZOLE 20 MG CAP PO SCH (08:40)
[2020-05-22] MEDS: LABETALOL 200 MG TAB PO SCH ×2 (08:44→21:08)
[2020-05-22 10:15] VITALS: BP 129/73
[2020-05-22 14:00] VITALS: BP 133/78
[2020-05-22 17:37] VITALS: BP 134/88
[2020-05-22] MEDS: SERTRALINE 100 MG TAB PO SCH (21:07)
[2020-05-22 22:01] VITALS: BP 118/60
[2020-05-23 02:00] VITALS: BP 121/62
[2020-05-23 06:00] VITALS: BP 125/72
[2020-05-23] MEDS: PRENATAL VITAMINS CHEWABLE TABLET PO SCH (08:25)
[2020-05-23] MEDS: OMEPRAZOLE 20 MG CAP PO SCH (08:25)
[2020-05-23 08:26] VITALS: BP 139/90
[2020-05-23] MEDS: LABETALOL 200 MG TAB PO SCH (08:26)
[2020-05-23] MEDS ORDERED: LABE20TAB PO (08:54)
[2020-05-23] MEDS ORDERED: ACET-683 PO (08:54)
[2020-05-23] MEDS ORDERED: IBUP80TA PO (08:54)
--- NOTE | 2020-05-23 09:03 | DS.PDOC ---
Discharge Summary General Date of Admission May 20, 2020 at 08:44 Date of Discharge 05/23/20 Attending Physician: DIDI CISNEROS DO Discharge Summary PROCEDURES PERFORMED DURING STAY: None. ADMITTING DIAGNOSES: 1. IUP at 37.5 weeks gestation with SROM. DISCHARGE DIAGNOSES: 1. vaginal delivery 2. preeclampsia COMPLICATIONS/CHIEF COMPLAINT: LABOR. HISTORY OF PRESENT ILLNESS: Patient is a 29-year-old female who presented to L&D with SROM at 37.5 weeks gestation. She received an epidural for pain management and her labor was augmented with IV Pitocin. She had a of a living female that weighed 6 lbs 6 oz. She continued to have elevated BPs and was started on PO Labetalol 200 mg BID due to her blood pressures and her history of preeclampsia with readmission after delivery with her last . Her blood pressures have been stable on this dosage of antihypertensive. HOSPITAL COURSE: complicated by preeclampsia. DISCHARGE MEDICATIONS: Please see below. ALLERGIES: Please see below. PHYSICAL EXAMINATION ON DISCHARGE: VITAL SIGNS: Please see below. GENERAL: A+Ox3 CARDIOVASCULAR EXAMINATION: RRR. NO murmur, rubs or gallops. RESPIRATORY EXAMINATION: Regular rate with no use of accessory muscles. Clear by auscultation bilaterally. ABDOMINAL EXAMINATION: Fundus firm. EXTREMITIES: generalized edema Perineum: scant lochia. LABORATORY DATA: Please see below. ACTIVITY: As tolerated. DIET: regular DISCHARGE INSTRUCTIONS: 1. Patient to be discharged to home. 2. Follow-up in the office in 2 weeks for BP check and 6 weeks for visit. 3. Reviewed signs of mastitis, endometritis, hemorrhage, preeclampsia, postpar herbert depression, and reviewed pain management options. 4. continue with PO Labetalol. DISCHARGE CONDITION: Stable. TIME SPENT ON DISCHARGE: Greater than minutes. Vital Signs/I&Os Vital Signs Date Time Temp Pulse Resp B/P (MAP) Pulse Ox O2 Delivery O2 Flow Rate FiO2 05/23/20 08:26 100 139/90 05/23/20 06:00 98.5 16 05/22/20 17:37 97 Room Air I&O- Last 24 Hours up to 6 AM 05/23/20 06:00 Intake Total 300 ml Balance 300 ml Discharge Medications Scheduled Omeprazole (Omeprazole) 40 Mg Cap, 40 MG PO QHS, (Reported) No.137/Iron/Folic Acd ( Vitamin Tablet) 1 Each Tablet, 1 TAB PO DAILY, (Reported) Sertraline Hcl (Zoloft) 100 Mg Tablet, 1 TAB PO DAILY, (Reported) Allergies Coded Allergies: No Known Allergies (Verified , 05/14/20) MARGRET ROSS CNM May 23, 2020 09:03
== END 2020-05-23 10:20 | disposition home or self-care (01) | DRG 560 ==
LOC: M LDO 07:51 → M LDI 08:44 → M OBS 21:50
PROVIDERS: ADMIT Obstetrics & Gynecology; ATTEND Obstetrics & Gynecology
PROC: 10E0XZZ Delivery of Products of Conception, External Approach (ICD-10-PCS; principal; 2020-05-20)
DX: O69.1XX0 Labor and delivery complicated by cord around neck, with compression, not applicable or unspecified (principal); Z37.0 Single live birth; Z3A.37 37 weeks gestation of pregnancy; O14.95 Unspecified pre-eclampsia, complicating the puerperium

== ENCOUNTER → 2020-06-29 | Outpatient (REF) | payer OTHER ==
[~2020-06-29] MED LIST changes: +ACET-683 PO; +HYDR-3363 PO; +IBUP80TA PO; +LABE20TAB PO; +LEVOTAB10 PO; +MOME50SP; +OMEP10CASR PO; +ZOLO100T PO
== END ==
LOC: M LAB REF 20:40
PROVIDERS: ATTEND Physician Assistant Medical
DX: R19.7 Diarrhea, unspecified (principal)

== ENCOUNTER 2020-07-01 11:15 | Emergency (ER) | payer OTHER ==
[~2020-07-01] VITALS: Ht 170.2 cm; Wt 90.9 kg
[~2020-07-01 11:15] MED LIST changes: -HYDR-3363 PO; -LEVOTAB10 PO; -MOME50SP; -OMEP10CASR PO
[2020-07-01] MEDS ORDERED: OMEP10CASR PO (11:28)
[2020-07-01] MEDS ORDERED: NS 1,000 ML IV ONE (11:45)
[2020-07-01] MEDS ORDERED: KETOROLAC 30 MG/ML 1ML VIAL IV ONE (12:15)
[2020-07-01] MEDS ORDERED: PROMETHAZINE INJ 25 MG/ML VIAL (J2550) IV ONE (12:15)
[2020-07-01 12:28] LABS: BASO # 0.1 10^3/uL (0.0-0.2); BASO % 0.4 % (0.0-1.0); EOS # 0.8 10^3/uL (0.0-0.5); EOS % 2.9 % (0.0-3.0); HEMATOCRIT 48.3 % (36.0-47.0); HEMOGLOBIN 15.4 g/dl (12.0-15.5); LYMPH # 1.9 10^3/uL (1.5-5.0); MEAN CORPUSCULAR HEMOGLOBIN 25.8 pg (27.0-33.0); MEAN CORPUSCULAR HGB CONC 31.9 g/dl (32.0-36.5); MEAN CORPUSCULAR VOLUME 80.8 fl (80.0-96.0); MONO # 1.5 10^3/uL (0.0-0.8); MONO % 5.4 % (0.0-5.0); NEUTROPHILS # 23.3 10^3/uL (1.5-8.5); NEUTROPHILS % 83.5 % (36.0-66.0); PLATELET COUNT, AUTOMATED 261 10^3/uL (150-450); RED BLOOD COUNT 5.98 10^6/uL (4.00-5.40); WHITE BLOOD COUNT 27.9 10^3/uL (4.0-10.0)
[2020-07-01 12:49] LABS: HCG, SERUM QUALITATIVE NEGATIVE (NEGATIVE)
[2020-07-01 13:03] LABS: ALBUMIN 3.4 GM/DL (3.2-5.2); ALT/SGPT 30 U/L (12-78); BILIRUBIN,DIRECT 0.1 MG/DL (0.0-0.2); BILIRUBIN,TOTAL 0.7 MG/DL (0.2-1.0); BLOOD UREA NITROGEN 14 MG/DL (7-18); CARBON DIOXIDE LEVEL 19 MEQ/L (21-32); CHLORIDE LEVEL 112 MEQ/L (98-107); CREATININE FOR GFR 0.75 MG/DL (0.55-1.30); GLOMERULAR FILTRATION RATE > 60.0 (>60); GLUCOSE, FASTING 77 MG/DL (70-100); LIPASE 8809 U/L (73-393); POTASSIUM SERUM 3.9 MEQ/L (3.5-5.1); SODIUM LEVEL 142 MEQ/L (136-145); TOTAL PROTEIN 7.1 GM/DL (6.4-8.2)
[2020-07-01] MEDS ORDERED: ISOVUE-370 76% 100ML VIAL As Ordered ONE (13:22)
[2020-07-01 17:05] VITALS: BP 117/69
[2020-07-21] MEDS ORDERED: MOME50SP (07:53)
[2020-07-21] MEDS ORDERED: LEVOTAB10 PO (07:53)
[2020-07-21] MEDS ORDERED: HYDR-3363 PO (07:53)
--- NOTE | 2020-07-31 16:11 | REP ---
CT OF THE ABDOMEN AND PELVIS WITH IV CONTRAST: HISTORY: Abdominal pain and leukocytosis. TECHNIQUE: Axial contrast-enhanced images from the lung bases to the pubic symphysis with coronal and sagittal reformations using 100 cc Isovue 370 intravenous contrast material. COMPARISON: 01/05/18 FINDINGS: Mucosal thickening to the small bowel with mild enhancement as well as small to moderate amount of free fluid is most consistent with an acute infectious/inflammatory enteritis. Differential diagnosis includes inflammatory bowel disease. The colon appears relatively normal. No free air to suggest perforation. The liver, spleen, pancreas, distended gallbladder, bilateral adrenal glands and kidneys are relatively normal. The pelvis demonstrates normal bladder and age appropriate uterus/adnexa. Scattered mesenteric lymph nodes are also noted and consistent with the above suggestions of acute infectious/inflammatory enteritis. Abdominal aorta and vasculature normal. Musculoskeletal structures are intact and without acute osseous abnormality. Lung bases are clear. IMPRESSION: Findings most compatible with infectious/inflammatory enteritis. Differential diagnosis includes inflammatory bowel disease. Correlation is recommended. MTDD
== END 2020-07-01 17:18 | disposition home or self-care (01) ==
LOC: EDBD 11:15 → M ED 11:15
DX: K85.90 Acute pancreatitis without necrosis or infection, unspecified (principal); A04.0 Enteropathogenic Escherichia coli infection; Z79.899 Other long term (current) drug therapy
CPT/HCPCS: 36415; 74177; 80048; 80076; 83690; 84703; 85025; 96361; 96374; 96375; 99284; J1885; Q9967

== ENCOUNTER → 2020-07-26 | Outpatient (CLI) | payer OTHER ==
[~2020-07-26] MED LIST changes: +HYDR-3363 PO; +LEVOTAB10 PO; +MOME50SP; +OMEP10CASR PO
== END ==
LOC: M LABSMTC 11:26
PROVIDERS: ATTEND Anesthesiology
DX: Z01.812 Encounter for preprocedural laboratory examination (principal); Z20.828 Contact with and (suspected) exposure to other viral communicable diseases
CPT/HCPCS: C9803; U0003

== ENCOUNTER 2020-07-31 10:37 | Day surgery (SDC) | payer OTHER ==
[~2020-07-31] VITALS: Ht 170.2 cm; Wt 93.0 kg
[~2020-07-31 10:37] MED LIST changes: +LR 1,000 ML IV ONE
[2020-07-31 11:19] LABS: HEMATOCRIT 43.5 % (36.0-47.0); HEMOGLOBIN 13.6 g/dl (12.0-15.5); MEAN CORPUSCULAR HEMOGLOBIN 25.4 pg (27.0-33.0); MEAN CORPUSCULAR HGB CONC 31.3 g/dl (32.0-36.5); MEAN CORPUSCULAR VOLUME 81.2 fl (80.0-96.0); PLATELET COUNT, AUTOMATED 286 10^3/uL (150-450); RED BLOOD COUNT 5.36 10^6/uL (4.00-5.40)
[2020-07-31] MEDS ORDERED: KETOROLAC 60MG 2ML VIAL As Ordered ONE (12:05)
[2020-07-31] MEDS ORDERED: ONDANSETRON 4MG/2ML VIAL As Ordered ONE (12:05)
[2020-07-31] MEDS ORDERED: dexameTHASONE 4 MG/ML 1ML VIAL (J1100 PER 1MG) As Ordered ONE (12:05)
[2020-07-31] MEDS ORDERED: METOCLOPRAMIDE INJ 10MG/2ML VIAL (J2765 PER 1) As Ordered ONE (12:05)
[2020-07-31] MEDS ORDERED: LIDOCAINE 2% 100MG/5ML SDV (FOR ANES.) As Ordered ONE (12:05)
[2020-07-31] MEDS ORDERED: ROCURONIUM BROMIDE 50 MG/5 ML VIAL As Ordered ONE (12:05)
[2020-07-31] MEDS ORDERED: propofoL 200 MG/20 ML VIAL As Ordered ONE (12:05)
[2020-07-31] MEDS ORDERED: MIDAZOLAM INJ 2MG/2ML VIAL (J2250 PER 1MG) As Ordered ONE (12:05)
[2020-07-31] MEDS ORDERED: fentaNYL 100 MCG/2 ML INJECTION (J3010) As Ordered ONE ×2 (12:05→13:20)
[2020-07-31] MEDS ORDERED: BUPIVACAINE HCL 0.25% 30ML VIAL As Ordered ONE (12:06)
[2020-07-31] MEDS ORDERED: SILVER NITRATE APPLICATOR As Ordered ONE (12:06)
[2020-07-31] MEDS ORDERED: PERCOCET 5MG/325MG TAB As Ordered ONE (13:20)
[2020-07-31] MEDS: fentaNYL 100 MCG/2 ML INJECTION (J3010) IV PRN ×2 (13:25→13:35)
[2020-07-31] MEDS ORDERED: METOCLOPRAMIDE INJ 10MG/2ML VIAL (J2765 PER 1) IV PRN (13:30)
[2020-07-31] MEDS ORDERED: LR 1,000 ML IV SCH ×2 (13:30)
[2020-07-31] MEDS ORDERED: PERCOCET 5MG/325MG TAB PO PRN (13:30)
[2020-07-31] MEDS ORDERED: ONDANSETRON 4MG/2ML VIAL IV PRN (13:30)
--- NOTE | 2020-07-31 13:41 | TRANSCARE ---
Transition of Care: Transition of Care Date of procedure: 07/31/2020 Preoperative diagnosis: Satisfied parity. Postoperative diagnosis: Same Procedure: Laparoscopic bilateral salpingectomy Anesthesia: Gen. endotracheal Estimated blood loss 5 mL IV fluids replaced 800 mL lactated Ringer's Drains: In and out catheter 50 mL of urine Complications: None Preoperative antibiotics: None indicated Specimens: Bilateral fallopian tubes Intraoperative findings: Normal size, shape, contour of the uterus. Normal adnexa/ovaries bilaterally. Minimal pelvic adhesions Procedure: The patient was counseled and consented on the risks, benefits, indications, and alternatives of the procedure. Informed consent was obtained. She was taken to the operating room with an IV running. She was placed on the operating table in the dorsal supine position. Gen. anesthesia was administered and the airway was secured without any difficulty. A time out was performed per protocol. She was prepared and draped in the normal sterile fashion. Attention was turned to the pelvis. The bladder was drained with an in and out sterile catheter. A speculum was placed into the vagina with good visualization of the cervix. A single-tooth tenaculum was placed on the anterior lip of the cervix and downward traction was applied. The cervix was sequentially dilated with Jass dilators up to a #16. A ZUMI uterine manipulator was placed without any difficulty. The single-tooth tenaculum was removed. The tenaculum sites were noted to be hemostatic. A sterile glove switch was performed. Attention was turned to the abdomen. A 5mm umbilical incision was made with the 11 blade. Through this incision, a Veress needle was placed into the intraperitoneal cavity. Intraperitoneal placement was confirmed with ease of flow of normal saline, a positive drop test and no return on aspiration. The opening pressure was 2 mmHg. The abdomen was insufflated with 2 L of CO2. The Veress needle was removed. A 5 mm laparoscopic trocar was placed under direct visualization without any difficulty, and intraperitoneal placement was confirmed. No incidental bleeding or injury was evident. The patient was placed in steep Trendelenburg. 2 additional laparoscopic port sites were placed through 5 mm incisions in the lower left quadrant. Each trocar/cannula was placed under direct visualization without any difficulty, incidental bleeding or injury. A ttention was turned to the right fallopian tube. The right fallopian tube was followed out to the fimbriated end, grasped and elevated. The underlying mesosalpinx was sequentially clamped, coagulated and transected, until the level of the cornu was reached. At this level, the fallopian tube was clamped, coagulated and transected, thus amputating the fallopian tube. The fallopian tube was brought through the cannula without any difficulty and sent to pathology for permanent section. Attention was turned to the left fallopian tube. The left fallopian tube was followed out to the fimbriated end, grasped and elevated. The underlying mesosalpinx was sequentially clamped, coagulated and transected, until the level of the cornu was reached. At this level the left fallopian tube was followed out to the fimbriated end, grasped and elevated. The underlying mesosalpinx was sequentially clamped, coagulated and transected, until the level of the cornu was reached. At this level the fallopian tube was clamped, coagulated and transected, thus amputating the fallopian tube. The fallopian tube was brought to the cannula without any difficulty and sent to pathology for permanent section. Both right and left surgical sites were noted to be completely hemostatic. The gas was released from the abdomen. The patient was taken out of Trendelenburg position. The cannulas were removed. The skin incisions were closed with 4-0 Monocryl in subcuticular fashion and reinforced with Dermabond. The uterine manipulator was removed, the vagina was noted to be clear of any sponge or instrument. Sponge, needle and instrument counts were correct per protocol. The patient tolerated the entire procedure very well. She was transferred to the PACU in good and stable condition. DO SG Le JONATHAN R. DO Jul 31, 2020 13:41
[2020-07-31] MEDS ORDERED: SUGAMMADEX SODIUM 500 MG/5 ML VIAL (BRIDION) As Ordered ONE (14:52)
[2020-07-31 15:00] VITALS: BP 120/75
== END 2020-07-31 15:00 | disposition home or self-care (01) ==
LOC: M SDC 10:37
PROVIDERS: ATTEND Obstetrics & Gynecology
DX: Z30.2 Encounter for sterilization (principal); F41.9 Anxiety disorder, unspecified; F32.9 Major depressive disorder, single episode, unspecified; G43.909 Migraine, unspecified, not intractable, without status migrainosus; Z79.899 Other long term (current) drug therapy
CPT/HCPCS: 36415; 58661; 81025; 85027; 86850; 86900; 86901; 88302; J1100; J1885; J2250; J2405; J2765; J3010

== ENCOUNTER → 2020-08-03 | Outpatient (REF) | payer OTHER ==
[~2020-08-03] MED LIST changes: -LR 1,000 ML IV ONE
== END ==
LOC: M LAB REF 17:07
PROVIDERS: ATTEND Physician Assistant
DX: D48.5 Neoplasm of uncertain behavior of skin (principal)

== ENCOUNTER → 2020-09-01 | Outpatient (CLI) | payer OTHER ==
[2020-09-01 13:06] LABS: BASO # 0.1 10^3/uL (0.0-0.2); BASO % 0.8 % (0.0-1.0); EOS # 1.1 10^3/uL (0.0-0.5); EOS % 7.4 % (0.0-3.0); HEMATOCRIT 44.3 % (36.0-47.0); HEMOGLOBIN 13.7 g/dl (12.0-15.5); LYMPH # 2.7 10^3/uL (1.5-5.0); MEAN CORPUSCULAR HEMOGLOBIN 24.7 pg (27.0-33.0); MEAN CORPUSCULAR HGB CONC 30.9 g/dl (32.0-36.5); MEAN CORPUSCULAR VOLUME 79.8 fl (80.0-96.0); MONO # 1.1 10^3/uL (0.0-0.8); MONO % 7.1 % (0.0-5.0); NEUTROPHILS # 9.8 10^3/uL (1.5-8.5); NEUTROPHILS % 66.2 % (36.0-66.0); PLATELET COUNT, AUTOMATED 336 10^3/uL (150-450); RED BLOOD COUNT 5.55 10^6/uL (4.00-5.40); WHITE BLOOD COUNT 14.8 10^3/uL (4.0-10.0)
[2020-09-01 13:29] LABS: ERYTHROCYTE SEDIMENTATION RATE 30 mm/hr (0-20)
[2020-09-01 13:35] LABS: ALBUMIN 3.4 GM/DL (3.2-5.2); ALT/SGPT 28 U/L (12-78); BILIRUBIN,TOTAL 0.2 MG/DL (0.2-1.0); BLOOD UREA NITROGEN 8 MG/DL (7-18); C REACTIVE PROTEIN QUANTITATIV 2.09 MG/DL (0.00-0.30); CALCIUM LEVEL 8.8 MG/DL (8.5-10.1); CARBON DIOXIDE LEVEL 26 MEQ/L (21-32); CHLORIDE LEVEL 110 MEQ/L (98-107); FERRITIN 38 NG/ML (8-252); FREE T4 1.23 NG/DL (0.76-1.46); GLOMERULAR FILTRATION RATE > 60.0 (>60); GLUCOSE, FASTING 82 MG/DL (70-100); IRON (FE) 25 UG/DL (50-170); PERCENT SATURATION 8.3 % (13.2-45.0); POTASSIUM SERUM 3.7 MEQ/L (3.5-5.1); SODIUM LEVEL 141 MEQ/L (136-145); TOTAL 25(OH) VITAMIN D 23.8 NG/ML (30.0-100.0); TOTAL IRON BINDING CAPACITY 302 UG/DL (250-450); TOTAL PROTEIN 7.2 GM/DL (6.4-8.2); VITAMIN B12 LEVEL 718 PG/ML (247-911)
[2020-09-01 13:37] LABS: FOLATE 10.7 NG/ML (>5.4)
[2020-09-10 16:14] LABS: ANTINUCLEAR ANTIBODIES DIRECT Negative (Negative); Lyme Disease IgG/IgM Antibodie <0.91 ISR (0.00-0.90); Lyme Disease IgM Ab Quantitati <0.80 index (0.00-0.79); VITAMIN B1 LEVEL WHOLE BLOOD 159.7 nmol/L (66.5-200.0); VITAMIN B6,PYRIDOXAL PHOSPHATE 3.2 ug/L (2.0-32.8)
== END ==
LOC: M PLALAB 09:22
PROVIDERS: ATTEND Nurse Practitioner Family
DX: R53.83 Other fatigue (principal); M12.9 Arthropathy, unspecified

== ENCOUNTER → 2021-01-09 | Outpatient (REF) | payer OTHER ==
[2021-01-09 16:59] LABS: BASO # 0.1 10^3/uL (0.0-0.2); BASO % 0.4 % (0.0-1.0); EOS % 0.1 % (0.0-3.0); HEMATOCRIT 42.7 % (36.0-47.0); HEMOGLOBIN 13.2 g/dl (12.0-15.5); LYMPH # 2.3 10^3/uL (1.5-5.0); LYMPH % 14.8 % (24.0-44.0); MEAN CORPUSCULAR HGB CONC 30.9 g/dl (32.0-36.5); MEAN CORPUSCULAR VOLUME 77.6 fl (80.0-96.0); MONO # 1.2 10^3/uL (0.0-0.8); MONO % 7.6 % (2.0-8.0); NEUTROPHILS # 12.1 10^3/uL (1.5-8.5); NEUTROPHILS % 76.7 % (36.0-66.0); PLATELET COUNT, AUTOMATED 327 10^3/uL (150-450); WHITE BLOOD COUNT 15.8 10^3/uL (4.0-10.0)
[2021-01-09 17:19] LABS: APPEARANCE, URINE CLOUDY (CLEAR); BACTERIA, URINE AUTO NEGATIVE (NEGATIVE); BILIRUBIN, URINE AUTO NEGATIVE (NEGATIVE); BLOOD, URINE BLOOD NEGATIVE (NEGATIVE); CALCIUM OXALATE CRYSTALS SMALL; COLOR, URINE AMBER (YELLOW); GLUCOSE, URINE (UA) AUTO NEGATIVE (NEGATIVE); KETONE, URINE AUTO NEGATIVE (NEGATIVE); LEUKOCYTE ESTERASE, URINE AUTO 1+ (NEGATIVE); MUCUS, URINE LARGE (NEGATIVE); NITRITE, URINE AUTO NEGATIVE (NEGATIVE); PROTEIN, URINE AUTO NEGATIVE (NEGATIVE); RBC, URINE AUTO 1 /HPF (0-3); SPECIFIC GRAVITY URINE AUTO 1.028 (1.002-1.035); SQUAMOUS EPITHELIAL CELL UR AU 10 /HPF (0-6); UROBILINOGEN, URINE AUTO 0.2 mg/dL (0.0-2.0); WBC, URINE AUTO 7 /HPF (0-3)
[2021-01-09 17:33] LABS: TOTAL PROTEIN,RANDOM URINE 32.8 MG/DL (0.0-12.0)
[2021-01-09 17:39] LABS: ALBUMIN 3.7 GM/DL (3.2-5.2); ALT/SGPT 30 U/L (12-78); BILIRUBIN,DIRECT < 0.1 MG/DL (0.0-0.2); BILIRUBIN,TOTAL 0.2 MG/DL (0.2-1.0); BLOOD UREA NITROGEN 13 MG/DL (7-18); C REACTIVE PROTEIN QUANTITATIV 0.84 MG/DL (0.00-0.30); CALCIUM LEVEL 8.9 MG/DL (8.5-10.1); CARBON DIOXIDE LEVEL 26 MEQ/L (21-32); CHLORIDE LEVEL 108 MEQ/L (98-107); COMPLEMENT C3 185 MG/DL (90-180); COMPLEMENT C4 34 MG/DL (10-40); CPK CREATINE PHOSPHOKINASE 41 U/L (26-192); GLOMERULAR FILTRATION RATE > 60.0 (>60); GLUCOSE, FASTING 95 MG/DL (70-100); IRON (FE) 22 UG/DL (50-170); MAGNESIUM LEVEL 2.2 MG/DL (1.8-2.4); PHOSPHORUS LEVEL 3.7 MG/DL (2.5-4.9); SODIUM LEVEL 140 MEQ/L (136-145); THYROID STIMULATING HORMONE 0.942 uIU/ML (0.358-3.740); TOTAL PROTEIN 7.5 GM/DL (6.4-8.2)
[2021-01-09 17:40] LABS: TOTAL 25(OH) VITAMIN D 26.7 NG/ML (30.0-100.0)
[2021-01-09 17:41] LABS: VITAMIN B12 LEVEL 518 PG/ML (247-911)
[2021-01-09 18:48] LABS: ERYTHROCYTE SEDIMENTATION RATE 26 mm/hr (0-20)
== END ==
LOC: M SFHCRHEU 15:13
PROVIDERS: ATTEND Internal Medicine
DX: M06.9 Rheumatoid arthritis, unspecified (principal); M06.4 Inflammatory polyarthropathy; M79.10 Myalgia, unspecified site

== ENCOUNTER → 2021-01-12 | Outpatient (CLI) | payer OTHER ==
--- NOTE | 2021-01-12 09:38 | REP ---
INDICATION: RHEUMATOID ARTHIRITIS COMPARISON: None. TECHNIQUE: AP, lateral, bilateral oblique views right and left wrist. FINDINGS: The bilateral carpal bones, joint spaces, and surrounding soft tissues are essentially symmetric and age-appropriate. No overt osteoarthritic or inflammatory arthritic changes are appreciated. IMPRESSION: Essentially symmetric normal age-appropriate bilateral wrist radiographs. <Electronically signed by Paul Roldan > 01/12/21 0969
--- NOTE | 2021-01-12 09:39 | REP ---
INDICATION: RHEUMATOID ARTHIRITIS COMPARISON: None. TECHNIQUE: AP, lateral, bilateral oblique views right and left hand. FINDINGS: Osseous structures, joint spaces, and surrounding soft tissues are symmetric and essentially normal/age-appropriate. No overt osteoarthritic or inflammatory arthritic changes are appreciated. No evidence for acute or healed injury. IMPRESSION: Symmetric relatively age-appropriate normal bilateral hand radiographs. <Electronically signed by Paul Roldan > 01/12/21 0953
--- NOTE | 2021-01-12 09:44 | REP ---
INDICATION: RHEUMATOID ARTHIRITIS COMPARISON: None. TECHNIQUE: AP, lateral, bilateral oblique and sunrise views of the right and left knee. FINDINGS: Osseous structures, joint spaces, and surrounding soft tissues are relatively symmetric and essentially age-appropriate with minimal age-related changes noted. No significant overt osteoarthritic or inflammatory arthritic changes are appreciated. No evidence for fracture or dislocation. No definite effusion. IMPRESSION: Relatively symmetric age-related changes. No overt osteoarthritic or inflammatory arthritic changes noted. <Electronically signed by Paul Roldan > 01/12/21 0993
--- NOTE | 2021-01-12 09:48 | REP ---
INDICATION: RHEUMATOID ARTHIRITIS COMPARISON: None. TECHNIQUE: AP, lateral, bilateral oblique views of the right and left ankle. FINDINGS: Osseous structures, joint spaces, and surrounding soft tissues are essentially age-appropriate. No overt osteoarthritic or inflammatory arthritic changes are appreciated. Bilateral ankle mortise intact. No evidence for acute or healed injury. IMPRESSION: Normal symmetric bilateral ankle radiograph series. No overt arthritic changes appreciated. <Electronically signed by Paul Roldan > 01/12/21 0967
--- NOTE | 2021-01-12 09:49 | REP ---
INDICATION: RHEUMATOID ARTHIRITIS COMPARISON: None. TECHNIQUE: AP, lateral, bilateral oblique views right and left foot. FINDINGS: Osseous structures, joint spaces, and surrounding soft tissues are normal and symmetric. No overt osteoarthritic or inflammatory arthritic changes are appreciated. No evidence for acute or healed injury identified. IMPRESSION: Normal symmetric bilateral foot radiographs.. No overt arthritic changes appreciated. <Electronically signed by Paul Roldan > 01/12/21 0930
== END ==
LOC: M LAB 08:39
PROVIDERS: ATTEND Internal Medicine
DX: M06.9 Rheumatoid arthritis, unspecified (principal); M25.569 Pain in unspecified knee

== ENCOUNTER → 2021-02-01 | Outpatient (CLI) | payer OTHER | LOC: M PLALAB 09:32 | PROVIDERS: ATTEND Internal Medicine | DX: M06.4 Inflammatory polyarthropathy (principal) ==

== ENCOUNTER → 2021-02-02 | Outpatient (CLI) | payer OTHER ==
--- NOTE | 2021-02-05 13:32 | SLEEPHOME ---
DIAGNOSTIC HOME SLEEP STUDY DATE: 02/02/2021 ORDERED BY: Kizzy Thompson M.D. Diagnostic home sleep testing was performed due to concern for the obstructive sleep apnea syndrome in this patient with a history of severe fatigue and nonrestorative sleep. For testing, a nocturnal T3 respiratory monitoring device was used. Continuous record was made of pulse, oxygen saturation, air flow, chest and abdominal strain, and body position. 9 hours and 59 minutes of data were reviewed. There were 5 hours and 52 minutes marked as time in bed. During the interval marked time in bed, there were 53 respiratory events identified of 10 seconds in duration or greater for a respiratory event index of 9. The events were primarily obstructive. Baseline pulse rate 82. Pulse rate range 64 to 115. Baseline saturation was 96%. Saturations fell to 84%. Testing was performed in both the supine and non-supine positions. IMPRESSION: Abnormal home sleep testing, with repetitive respiratory events and oxygen desaturations to 84% with a respiratory event index of 9, is consistent with the obstructive sleep apnea syndrome. RECOMMENDATION: The patient should be encouraged to undergo a formal sleep evaluation.
== END ==
LOC: M SLEEP HO 10:16
PROVIDERS: ATTEND Internal Medicine
DX: R53.82 Chronic fatigue, unspecified (principal)

== ENCOUNTER → 2021-04-17 | Outpatient (REF) | payer OTHER ==
[2021-04-17 17:23] LABS: BASO # 0.1 10^3/uL (0.0-0.2); BASO % 0.6 % (0.0-1.0); EOS % 0.1 % (0.0-3.0); HEMATOCRIT 41.6 % (36.0-47.0); HEMOGLOBIN 12.2 g/dl (12.0-15.5); LYMPH # 2.2 10^3/uL (1.5-5.0); LYMPH % 12.2 % (24.0-44.0); MEAN CORPUSCULAR HEMOGLOBIN 22.4 pg (27.0-33.0); MEAN CORPUSCULAR HGB CONC 29.3 g/dl (32.0-36.5); MEAN CORPUSCULAR VOLUME 76.3 fl (80.0-96.0); MONO # 1.4 10^3/uL (0.0-0.8); MONO % 7.9 % (2.0-8.0); NEUTROPHILS # 14.3 10^3/uL (1.5-8.5); NEUTROPHILS % 78.5 % (36.0-66.0); PLATELET COUNT, AUTOMATED 361 10^3/uL (150-450); RED BLOOD COUNT 5.45 10^6/uL (4.00-5.40); WHITE BLOOD COUNT 18.2 10^3/uL (4.0-10.0)
[2021-04-17 17:45] LABS: ALBUMIN 3.4 GM/DL (3.2-5.2); ALT/SGPT 32 U/L (12-78); BILIRUBIN,DIRECT 0.1 MG/DL (0.0-0.2); BILIRUBIN,TOTAL 0.3 MG/DL (0.2-1.0); BLOOD UREA NITROGEN 11 MG/DL (7-18); CALCIUM LEVEL 9.4 MG/DL (8.5-10.1); CARBON DIOXIDE LEVEL 27 MEQ/L (21-32); CHLORIDE LEVEL 106 MEQ/L (98-107); CREATININE FOR GFR 0.58 MG/DL (0.55-1.30); GLOMERULAR FILTRATION RATE > 60.0 (>60); GLUCOSE, FASTING 109 MG/DL (70-100); POTASSIUM SERUM 3.8 MEQ/L (3.5-5.1); SODIUM LEVEL 140 MEQ/L (136-145); TOTAL PROTEIN 7.1 GM/DL (6.4-8.2)
[2021-04-17 17:46] LABS: C REACTIVE PROTEIN QUANTITATIV 2.37 MG/DL (0.00-0.30)
[2021-04-17 17:58] LABS: ERYTHROCYTE SEDIMENTATION RATE 46 mm/hr (0-20)
== END ==
LOC: M PLALAB 13:40
PROVIDERS: ATTEND Internal Medicine
DX: M06.9 Rheumatoid arthritis, unspecified (principal)

== ENCOUNTER → 2021-04-18 | Outpatient (REF) | payer OTHER | LOC: M SFHCWAGY 13:06 | PROVIDERS: ATTEND Obstetrics & Gynecology | DX: Z12.4 Encounter for screening for malignant neoplasm of cervix (principal) ==

== ENCOUNTER → 2021-05-14 | Outpatient (CLI) | payer OTHER ==
[~2021-05-14] MED LIST changes: +OMEP40CA4 PO; -OMEP40CA97 PO
[2021-05-14 13:30] LABS: BASO # 0.1 10^3/uL (0.0-0.2); BASO % 0.6 % (0.0-1.0); EOS # 0.1 10^3/uL (0.0-0.5); EOS % 0.3 % (0.0-3.0); HEMATOCRIT 42.3 % (36.0-47.0); HEMOGLOBIN 12.4 g/dl (12.0-15.5); LYMPH % 9.6 % (24.0-44.0); MEAN CORPUSCULAR HEMOGLOBIN 22.2 pg (27.0-33.0); MEAN CORPUSCULAR HGB CONC 29.3 g/dl (32.0-36.5); MEAN CORPUSCULAR VOLUME 75.7 fl (80.0-96.0); MONO # 1.5 10^3/uL (0.0-0.8); MONO % 7.1 % (2.0-8.0); NEUTROPHILS # 17.1 10^3/uL (1.5-8.5); NEUTROPHILS % 81.5 % (36.0-66.0); PLATELET COUNT, AUTOMATED 354 10^3/uL (150-450); RED BLOOD COUNT 5.59 10^6/uL (4.00-5.40)
[2021-05-14 13:44] LABS: WHITE BLOOD COUNT 20.9 10^3/uL (4.0-10.0)
[2021-05-14 13:54] LABS: ALBUMIN 3.3 GM/DL (3.2-5.2); ALT/SGPT 26 U/L (12-78); BILIRUBIN,DIRECT < 0.1 MG/DL (0.0-0.2); BILIRUBIN,TOTAL 0.3 MG/DL (0.2-1.0); BLOOD UREA NITROGEN 12 MG/DL (7-18); C REACTIVE PROTEIN QUANTITATIV 1.63 MG/DL (0.00-0.30); CALCIUM LEVEL 9.3 MG/DL (8.5-10.1); CARBON DIOXIDE LEVEL 26 MEQ/L (21-32); CHLORIDE LEVEL 109 MEQ/L (98-107); GLOMERULAR FILTRATION RATE > 60.0 (>60); GLUCOSE, FASTING 80 MG/DL (70-100); POTASSIUM SERUM 4.5 MEQ/L (3.5-5.1); SODIUM LEVEL 141 MEQ/L (136-145); TOTAL PROTEIN 7.1 GM/DL (6.4-8.2)
[2021-05-14 14:31] LABS: ERYTHROCYTE SEDIMENTATION RATE 29 mm/hr (0-20)
== END ==
LOC: M PLALAB 09:55
PROVIDERS: ATTEND Internal Medicine
DX: E55.9 Vitamin D deficiency, unspecified (principal)

== ENCOUNTER → 2021-06-22 | Outpatient (CLI) | payer OTHER ==
[2021-06-22 16:51] LABS: BASO # 0.1 10^3/uL (0.0-0.2); BASO % 0.5 % (0.0-1.0); EOS # 0.1 10^3/uL (0.0-0.5); EOS % 0.6 % (0.0-3.0); HEMATOCRIT 40.3 % (36.0-47.0); HEMOGLOBIN 12.1 g/dl (12.0-15.5); LYMPH # 2.2 10^3/uL (1.5-5.0); LYMPH % 12.4 % (24.0-44.0); MEAN CORPUSCULAR HEMOGLOBIN 22.3 pg (27.0-33.0); MEAN CORPUSCULAR VOLUME 74.2 fl (80.0-96.0); MONO # 1.3 10^3/uL (0.0-0.8); MONO % 7.2 % (2.0-8.0); NEUTROPHILS # 13.8 10^3/uL (1.5-8.5); NEUTROPHILS % 78.8 % (36.0-66.0); PLATELET COUNT, AUTOMATED 338 10^3/uL (150-450); RED BLOOD COUNT 5.43 10^6/uL (4.00-5.40); WHITE BLOOD COUNT 17.5 10^3/uL (4.0-10.0)
[2021-06-22 17:16] LABS: ALBUMIN 3.2 GM/DL (3.2-5.2); ALT/SGPT 24 U/L (12-78); BILIRUBIN,DIRECT < 0.1 MG/DL (0.0-0.2); BILIRUBIN,TOTAL 0.2 MG/DL (0.2-1.0); BLOOD UREA NITROGEN 11 MG/DL (7-18); CALCIUM LEVEL 8.7 MG/DL (8.5-10.1); CARBON DIOXIDE LEVEL 26 MEQ/L (21-32); CHLORIDE LEVEL 110 MEQ/L (98-107); CREATININE FOR GFR 0.75 MG/DL (0.55-1.30); GLOMERULAR FILTRATION RATE > 60.0 (>60); GLUCOSE, FASTING 107 MG/DL (70-100); SODIUM LEVEL 140 MEQ/L (136-145); TOTAL PROTEIN 6.9 GM/DL (6.4-8.2)
[2021-06-22 17:33] LABS: ERYTHROCYTE SEDIMENTATION RATE 26 mm/hr (0-20)
== END ==
LOC: M LAB 16:28
PROVIDERS: ATTEND Internal Medicine
DX: E55.9 Vitamin D deficiency, unspecified (principal)